=== PATIENT | male | born 2000 | race Caucasian/White ===

== ENCOUNTER 2020-09-26 17:25 | Emergency (ER) | payer MEDICAID ==
[2020-09-26] MEDS ORDERED: Acetaminophen/HYDROcodone 325-5 MG Tab PO ONE (17:30)
[2020-09-26] MEDS ORDERED: Diphtheria,Pertussis(Acell),Tetanus Vaccine 0.5 ML SDV IM ONE (17:44)
--- NOTE | 2020-09-26 17:55 | EDM.PDOC ---
ED HPI GENERAL MEDICAL PROBLEM - General Chief Complaint: General Stated Complaint: finger injury Time Seen by Provider: 09/26/20 17:40 Source of Information: Reports: Patient History Limitations: Reports: No Limitations - History of Present Illness INITIAL COMMENTS - FREE TEXT/NARRATIVE: 20 year old male caught left hand 3rd and 4th fingers between cinder block and trailer hitch approx 1 hour ago. Needs tetanus. Location: Reports: Upper Extremity, Left Quality: Reports: Pressure, Throbbing Severity: Mild Improves with: Reports: None Worsens with: Reports: None Associated Symptoms: Reports: No Other Symptoms Left Hand Pain Score (Numeric/FACES): 2 - Related Data Allergies Allergy/AdvReac Type Severity Reaction Status Date / Time No Known Allergies Allergy Verified 09/26/20 17:30 Home Meds: Home Meds Escitalopram Oxalate [Lexapro] 10 mg PO DAILY 09/26/20 [History] ED ROS GENERAL - Review of Systems Review Of Systems: See Below Constitutional: Reports: No Symptoms HEENT: Reports: No Symptoms Respiratory: Reports: No Symptoms Cardiovascular: Reports: No Symptoms Endocrine: Reports: No Symptoms GI/Abdominal: Reports: No Symptoms : Reports: No Symptoms Musculoskeletal: Reports: Hand Pain Skin: Reports: Wound (left 3rd and 4th fingers, nailbed of 3rd, cuticle of 4th) Neurological: Reports: No Symptoms Psychiatric: Reports: No Symptoms Hematologic/Lymphatic: Reports: No Symptoms Immunologic: Reports: No Symptoms ED EXAM, GENERAL - Physical Exam Exam: See Below Exam Limited By: No Limitations General Appearance: Alert, Mild Distress Ears: Normal External Exam Nose: Normal Inspection Throat/Mouth: Normal Inspection, Normal Voice, Inflammation Neck: Non-Tender, Full Range of Motion Respiratory/Chest: No Respiratory Distress, No Accessory Muscle Use Cardiovascular: Regular Rate, Rhythm, No Edema, No JVD Peripheral Pulses: 3+: Radial (L), Radial (R) GI/Abdominal: Non-Tender Back Exam: Full Range of Motion Extremities: Normal Range of Motion, Normal Capillary Refill, Redness Neurological: Alert, Oriented, Normal Cognition, No Motor/Sensory Deficits Psychiatric: Normal Affect, Normal Mood Skin Exam: Wound/Incision Lymphatic: No Adenopathy ED GENERAL MEDICAL PROCEDURES - Splinting left Pre-procedure NV status: Normal Post-procedure NV status: Normal Splint Type: Custom Splint Material: Fiberglass Applied & Form Fitted By: Provider Provider Post-Splint Application NV Check: NV Status Normal, Good Position Complications: No Progress/Comments: 3rd fingernail left hand trephination done without complications. 3rd and 4th left hand fingers cleaned and dressed with telfa and kerlix. Fiberglass splint applied to protect fingertips. Course - Vital Signs Last Recorded V/S: Last Vital Signs Temp 97 F 09/26/20 17:42 Pulse 62 09/26/20 17:42 Resp 20 09/26/20 17:42 BP 95/45 L 09/26/20 17:42 Pulse Ox 100 09/26/20 17:42 - Orders/Labs/Meds Orders: Active Orders 24 hr Category Date Time Status Vaccines to be Administered [RC] PER UNIT ROUTINE Care 09/26/20 17:45 Active Hand Comp Min 3V Lt [CR] Stat Exams 09/26/20 17:29 Taken Meds: Medications Discontinued Medications Generic Name Dose Route Start Last Admin Trade Name Freq PRN Reason Stop Dose Admin Hydrocodone Bitart/Acetaminophen 1 tab 09/26/20 17:30 09/26/20 17:35 [place]st 325-5 Mg PO 09/26/20 17:31 1 tab ONETIME ONE Administration Diphtheria/Tetanus/Acell Pertussis 0.5 ml 09/26/20 17:44 09/26/20 17:50 Boostrix IM 09/26/20 17:45 0.5 ml .ONCE ONE Administration Departure - Departure Time of Disposition: 18:35 Disposition: Home, Self-Care 01 Condition: Good Clinical Impression: Closed fracture of tuft of distal phalanx of finger - Discharge Information *PRESCRIPTION DRUG MONITORING PROGRAM REVIEWED*: Not Applicable *COPY OF PRESCRIPTION DRUG MONITORING REPORT IN PATIENT VAIBHAV: Not Applicable Instructions: Finger Fracture, Adult, [id number] Forms: ED Department Discharge Additional Instructions: Ice, elevate. Take ibuprofen(600mg every 6 hours with food)and/or tylenol(650mg every 6 hours) for pain at home. For severe pain take the norco 1 tablet every 6 hours. Keep the splint in place. Follow up with PCP next week or sooner if needed. Sepsis Event Note (ED) - Evaluation Sepsis Screening Result: No Definite Risk - Focused Exam Vital Signs: Vital Signs Temp Pulse Resp BP Pulse Ox 09/26/20 17:42 97 F 62 20 95/45 L 100 - My Orders Last 24 Hours: My Active Orders 09/26/20 17:29 Hand Comp Min 3V Lt [CR] Stat 09/26/20 17:45 Vaccines to be Administered [RC] PER UNIT ROUTINE - Assessment/Plan Last 24 Hours: My Active Orders 09/26/20 17:29 Hand Comp Min 3V Lt [CR] Stat 09/26/20 17:45 Vaccines to be Administered [RC] PER UNIT ROUTINE
[2020-09-26] MEDS ORDERED: Acetaminophen/HYDROcodone 325-5 MG Tab ONE (18:00)
--- NOTE | 2020-09-27 10:23 | CR ---
Date of Service: 09/26/20 Clinical Data: Injury. LEFT HAND: There is a comminuted fracture through the tuft of the distal phalanx of the fourth digit. There is a nondisplaced oblique avulsion fracture through the tuft of the distal phalanx of the third digit. No other acute abnormalities. [id number] [facility]
== END 2020-09-26 18:40 | disposition home or self-care (01) ==
LOC: LB.ED 17:25
DX: S62.635A Displaced fracture of distal phalanx of left ring finger, initial encounter for closed fracture (principal); W23.0XXA Caught, crushed, jammed, or pinched between moving objects, initial encounter
CPT/HCPCS: 29125; 73130-LT; 90471; 90715; 99283; A9270-GY